=== PATIENT | male | born 1990 | race Caucasian/White ===

== ENCOUNTER 2022-01-13 08:48 | Emergency (ER) | payer SELFPAY ==
[2022-01-13] MEDS ORDERED: Boostrix 0.5 ML (Tdap) VIAL ONE (09:23)
[2022-01-13] MEDS ORDERED: Bacitracin 1 PK ONE (09:24)
[2022-01-13] MEDS ORDERED: Lidocaine 1% w/Epinephrine 1:100K 20 ML VIAL ONE (09:39)
[2022-01-13] MEDS ORDERED: HYDROcodone/Acetaminophen 5/325 mg Tablet ONE (09:42)
== END 2022-01-13 10:10 | disposition home or self-care (01) ==
LOC: NAV ERS 08:48
DX: S61.512A Laceration without foreign body of left wrist, initial encounter (principal); I10 Essential (primary) hypertension; F17.210 Nicotine dependence, cigarettes, uncomplicated; W26.8XXA Contact with other sharp object(s), not elsewhere classified, initial encounter; Z23 Encounter for immunization
CPT/HCPCS: 12002; 90471; 90715

== ENCOUNTER 2024-09-08 19:34 | Emergency (ER) | payer SELFPAY ==
[2024-09-08] MEDS ORDERED: Sulfameth/Trimethoprim DS 800-160mg TAB ONE (20:44)
[2024-09-08] MEDS ORDERED: Cephalexin 250 MG CAP ONE (20:44)
[2024-09-08] MEDS ORDERED: HYDROcodone/Acetaminophen 5/325 mg Tablet ONE (21:06)
== END 2024-09-08 21:00 | disposition home or self-care (01) ==
LOC: NAV ERS 19:34
DX: L03.211 Cellulitis of face (principal); I10 Essential (primary) hypertension; F17.210 Nicotine dependence, cigarettes, uncomplicated
CPT/HCPCS: 99283